=== PATIENT | male | born 1990 | race Caucasian/White ===

== ENCOUNTER 2021-12-20 04:38 | Inpatient (IN) | payer SELFPAY ==
[~2021-12-20] VITALS: Ht 180.3 cm; Wt 93.0 kg
[2021-12-20] VITALS (7 sets, daily range): BP systolic 107–143; BP diastolic 53–81
[2021-12-20] MEDS ORDERED: HYDR-2868 PO (05:24)
[2021-12-20] MEDS ORDERED: SERT100T PO (05:24)
[2021-12-20] MEDS ORDERED: MORPHINE SULFATE 2 MG/ML INJ. IVP PRN ×2 (05:30→07:15)
[2021-12-20] MEDS ORDERED: ONDANSETRON PF 4 MG/2 ML VIAL. IVP PRN (05:30)
[2021-12-20] MEDS ORDERED: IV NORMAL SALINE 1000ML BAG 1,000 ML IV ONE (05:30)
[2021-12-20] MEDS ORDERED: DEXAMETHASONE SOD PHOS 4 MG/ML VIAL ONE (07:02)
[2021-12-20] MEDS ORDERED: SUCCINYLCHOLINE 200 MG/10 ML VIAL. ONE (07:02)
[2021-12-20] MEDS ORDERED: ROCURONIUM 50 MG/5 ML VIAL. ONE (07:02)
[2021-12-20] MEDS ORDERED: ONDANSETRON PF 4 MG/2 ML VIAL. ONE (07:02)
[2021-12-20] MEDS ORDERED: LIDOCAINE 2% PF 5 ML VIAL. ONE (07:02)
[2021-12-20] MEDS ORDERED: PROPOFOL 10 MG/ML (20ML) VIAL. IV ONE (07:02)
[2021-12-20] MEDS ORDERED: BUPIVACAINE-EPI 0.25%-1:200000 MPF 30 ML VIAL. ONE (07:07)
[2021-12-20] MEDS ORDERED: HYDROmorphone 2 MG/ML INJ. IVP PRN (07:15)
[2021-12-20] MEDS ORDERED: fentaNYL PF VIAL 100 MCG/2 ML VIAL IVP PRN (07:15)
[2021-12-20] MEDS ORDERED: MIDAZOLAM HCL/PF 2 MG/2 ML VIAL. ONE (07:15)
[2021-12-20] MEDS ORDERED: PROCHLORPERAZINE 10 MG/2 ML VIAL. IVP PRN (07:15)
[2021-12-20] MEDS ORDERED: IV RINGERS,LACTATED 1000ML 1,000 ML IV SCH (07:15)
--- NOTE | 2021-12-20 07:26 | PDOC2 ---
CONSULT Date of Consult Date of Consult DATE: 12/20/21 TIME: 07:24 Reason for Consult Reason for Consult: Acute appendicitis Referring Physician Referring Physician: Hospitalist Identification/Chief Complaint Chief Complaint Abdominal pain Source Source: Chart review, Patient History of Present Illness Reason for Visit: 30-year-old male with 18-hour history of right lower quadrant abdominal pain came to emergency department further evaluation CT scan showing signs consistent with acute appendicitis elevated white count. Past Medical History Cardiovascular: No pertinent hx Pulmonary: No pertinent hx GI: No pertinent hx Heme/Onc: No pertinent hx Hepatobiliary: No pertinent hx Psych: No pertinent hx Rheumatologic: No pertinent hx Infectious disease: No pertinent hx ENT: No pertinent hx Renal/: No pertinent hx Endocrine: No pertinent hx Dermatology: No pertinent hx Past Surgical History Past Surgical History: No pertinent history Family History Family History: No Significant Social History No ALCOHOL: rare Drugs: None Lives: with Family Current Medications Current Medications Current Medications Sodium Chloride 1,000 ml @ 125 mls/hr 1X ONCE IV Last administered on 12/20/21at 05:28; Start 12/20/21 at 05:30; Stop 12/20/21 at 13:29 Morphine Sulfate (Morphine Sulfate) 2 mg PRN Q3HRS PRN IVP PAIN Last administered on 12/20/21at 05:29; Start 12/20/21 at 05:30 Ondansetron HCl (Zofran) 4 mg PRN Q4HRS PRN IVP NAUSEA/VOMITING; Start 12/20/21 at 05:30 Hydralazine HCl (Apresoline) 25 mg DAILY PO ; Start 12/20/21 at 09:00; Status UNV Sertraline HCl (Zoloft) 100 mg DAILY PO ; Start 12/20/21 at 09:00 Fentanyl Citrate (Fentanyl 2ml Vial) 25 mcg PRN Q5MIN PRN IVP MILD PAIN 1-3; Start 12/20/21 at 07:15; Stop 12/20/21 at 20:00 Fentanyl Citrate (Fentanyl 2ml Vial) 50 mcg PRN Q5MIN PRN IVP MODERATE PAIN 4- 6; Start 12/20/21 at 07:15; Stop 12/20/21 at 20:00 Morphine Sulfate (Morphine Sulfate) 1 mg PRN Q10MIN PRN IVP SEVERE PAIN 7-10; Start 12/20/21 at 07:15; Stop 12/20/21 at 20:00 Ringer's Solution 1,000 ml @ 30 mls/hr Q24H IV ; Start 12/20/21 at 07:15; Stop 12/20/21 at 19:14 Hydromorphone HCl (Dilaudid) 0.5 mg PRN Q10MIN PRN IVP SEVERE PAIN 7-10, 2nd CHOICE; Start 12/20/21 at 07:15; Stop 12/20/21 at 20:00 Prochlorperazine Edisylate (Compazine) 5 mg PACU PRN PRN IVP NAUSEA, MRX1; Start 12/20/21 at 07:15; Stop 12/20/21 at 20:00 Lidocaine HCl (Lidocaine Pf 2% Vial) 5 ml STK-MED ONCE .ROUTE ; Start 12/20/21 at 07:02; Stop 12/20/21 at 07:02; Status DC Propofol (Diprivan) 200 mg STK-MED ONCE IV ; Start 12/20/21 at 07:02; Stop 12/20/21 at 07:02; Status DC Ondansetron HCl (Zofran) 4 mg STK-MED ONCE .ROUTE ; Start 12/20/21 at 07:02; Stop 12/20/21 at 07:02; Status DC Dexamethasone Sodium Phosphate (Decadron) 4 mg STK-MED ONCE .ROUTE ; Start 12/20/21 at 07:02; Stop 12/20/21 at 07:02; Status DC Succinylcholine Chloride (Anectine) 200 mg STK-MED ONCE .ROUTE ; Start 12/20/21 at 07:02; Stop 12/20/21 at 07:02; Status DC Rocuronium [place] (Zemuron) 50 mg STK-MED ONCE .ROUTE ; Start 12/20/21 at 07:02; Stop 12/20/21 at 07:03; Status DC Bupivacaine HCl/ Epinephrine Bitart (Sensorcaine-Epi 0.25%-1:333267 Mpf) 30 ml STK-MED ONCE .ROUTE Last administered on 12/20/21at 07:13; Start 12/20/21 at 07:07; Stop 12/20/21 at 07:07; Status DC Midazolam HCl (Versed) 2 mg STK-MED ONCE .ROUTE ; Start 12/20/21 at 07:15; Stop 12/20/21 at 07:16; Status DC Active Scripts Active Reported Zoloft (Sertraline Hcl) 100 Mg Tablet 1 Tab PO DAILY Allergies Allergies: Coded Allergies: No Known Drug Allergies (Unverified , 12/20/21) ROS General: No: Chills, Night Sweats, Fatigue, Malaise, Appetite, Other PSYCHOLOGICAL ROS: No: Anxiety, Behavioral Disorder, Concentration difficultie, Decreased libido, Depression, Disorientation, Hallucinations, Hostility, Irritablity, Memory difficulties, Mood Swings, Obsessive thoughts, Physical abuse, Sexual abuse, Sleep disturbances, Suicidal ideation, Other Eyes: No Blurry vision, No Decreased vision, No Double vision, No Dry eyes, No Excessive tearing, No Eye Pain, No Itchy Eyes, No Loss of vision, No Photophobia, No Scotomata, No Uses contacts, No Uses glasses, No Other HEENT: No: Heacaches, Visual Changes, Hearing change, Nasal congestion, Nasal discharge, Oral lesions, Sinus pain, Sore Throat, Epistaxis, Sneezing, Snoring, Tinnitus, Vertigo, Vocal changes, Other ALLERGY AND IMMUNOLOGY: No: Hives, Insect Bite Sensitivity, Itchy/Watery Eyes, Nasal Congestion, Post Nasal Drip, Seasonal Allergies, Other Hematological and Lymphatic: No: Bleeding Problems, Blood Clots, Blood Transfusions, Brusing, Night Sweats, Pallor, Swollen Lymph Nodes, Other ENDOCRINE: No: Breast Changes, Galactorrhea, Hair Pattern Changes, Hot Flashes, Malaise/lethargy, Mood Swings, Palpitations, Polydipsia/polyuria, Skin Changes, Temperature Intolerance, Unexpected Weight Changes, Other Respiratory: No: Cough, Hemoptysis, Orthopnea, Pleuritic Pain, Shortness of breath, SOB with excertion, Sputum Changes, Stridor, Tachypnea, Wheezing, Other Cardiovascular: No Chest Pain, No Palpitations, No Orthopnea, No Paroxysmal Noc. Dyspnea, No Edema, No Lt Headedness, No Other Gastrointestinal: Yes Nausea, Yes Abdominal Pain Genitourinary: No Dysuria, No Frequency, No Incontinence, No Hematuria, No Retention, No Discharge, No Urgency, No Pain, No Flank Pain, No Other, No , No , No , No , No , No , No Musculoskeletal: No Gait Disturbance, No Joint Pain, No Joint Stiffness, No Joint Swelling, No Muscle Pain, No Muscular Weakness, No Pain In:, No Swelling In:, No Other Neurological: No Behavorial Changes, No Bowel/Bladder ControlChng, No Confusion, No Dizziness, No Gait Disturbance, No Headaches, No Impaired Coord/balance, No Memory Loss, No Numbness/Tingling, No Seizures, No Speech P roblems, No Tremors, No Visual Changes, No Weakness, No Other Skin: No Dry Skin, No Eczema, No Hair Changes, No Lumps, No Mole Changes, No Mottling, No Nail Changes, No Pruritus, No Rash, No Skin Lesion Changes, No Other, No Acne Physical Exam General: Alert, Oriented X3, Cooperative, mild distress HEENT: Atraumatic, PERRLA, EOMI Lungs: Clear to auscultation, Normal air movement Heart: Regular rate, No murmurs Abdomen: Normal bowel sounds, Soft, Other (Tender to palpation right lower quadrant no peritoneal signs) Extremities: No edema Skin: No significant lesion Neuro: Normal gait, Normal speech Psych/Mental Status: Mental status NL Vitals VITALS Vital Signs Date Time Temp Pulse Resp B/P (MAP) Pulse Ox O2 Delivery O2 Flow Rate FiO2 12/20/21 04:55 Room Air 12/20/21 04:50 98.2 61 16 143/81 (101) 98 98.2 Assessment/Plan Assessment/Plan Acute appendicitis plan laparoscopic appendectomy RUDY GIBSON MD Dec 20, 2021 07:26
[2021-12-20] MEDS ORDERED: PIPERACILLIN/TAZOBACTAM 3.375 GM in IV NORMAL SALINE 50ML 50 ML IV ONE (07:30)
[2021-12-20] MEDS ORDERED: KETOROLAC 30 MG/ML VIAL. ONE (07:35)
[2021-12-20] MEDS ORDERED: KETAMINE HCL IN NACL, ISO-OSM 50 MG/5 ML SYRINGE ONE (07:40)
[2021-12-20] MEDS ORDERED: NEOSTIGMINE METHYLSULFATE 5 MG/5 ML SYRINGE. ONE (08:00)
[2021-12-20] MEDS ORDERED: GLYCOPYRROLATE 1 MG/5 ML VIAL. ONE (08:00)
[2021-12-20] MEDS ORDERED: SEVOFLURANE 31 TO 60 MINUTES. IH ONE (08:09)
--- NOTE | 2021-12-20 08:17 | PDOC4 ---
Operative Note Operative Note Date: December 202021 at 8:14 AM Preoperative diagnosis: Acute appendicitis Postoperative diagnosis: The same Procedure: Laparoscopic appendectomy Surgeon: Cory Specimen: Appendix Children'S Book Author: None Dictation: Patient is a 30-year-old male has had 18-hour history of right lower quadrant abdominal pain a CT scan showing signs consistent with acute appendicitis. Procedure of laparoscopic appendectomy was explained to the patient detail was benefits were also discussed including bleeding infection injury to intra-abdominal contents possible necessitating further open operati ons alternatives to this procedure also discussed with the patient seemed to understand and gave a verbal written consent had procedure performed. Patient was taken to the operating room placed in the supine position general anesthesia was initiated once patient was sleeping intubated his abdomen was prepped and draped in usual sterile fashion using ChloraPrep. Area just below his umbilicus was injected with quarter percent Marcaine with epinephrine incision was made with a blade scalpel and a varies needle was placed within the abdomen creating pneumoperitoneum once this was complete the millimeter port was placed in a 5 mm camera was placed within the abdomen which was inspected was noted that the ear was for some free fluid in the right lower quadrant as well as an edematous inflamed appendix. 5 mm port was placed low in the midline and a 5 mm ports placed in the right midabdomen all under direct visualization. The appendix was grasped retracted towards anterior abdominal wall a window was propagated t hrough the mesoappendix at the base of the appendix with a [place] dissector. Endo VANCE stapler was used to staple and transect the base of the appendix a second load was used to staple and transect the mesoappendix. The appendix placed in Endo Catch bag and removed from the umbilicus there was some bleeding along the staple line this was controlled with pressure and a Ray-Sujit sponge the right lower quadrant was irrigated and suctioned dry as well as the pelvis. The Ray-Sujit sponge was then removed from the abdomen hemostasis deemed to be appropriate the pneumoperitoneum was reduced all ports were removed the fascial defect at the umbilicus was closed with a [id number] 0 Vicryl suture and the skin was reapproximated all port sites for subcuticular Monocryl Mastisol Steri-Strips and island dressings were applied. Patient was awakened extubated in the operating room taken to recovery in stable condition all sponge instrument needle counts listed as correct estimated blood loss 20 mL RUDY GIBSON MD Dec 20, 2021 08:17
--- NOTE | 2021-12-20 08:22 | DISCH ---
DISCHARGE INSTRUCTIONS Condition on Discharge Condition on Discharge: Stable Activity After Discharge Activity Instructions for Disc: No restrictions Other activity instructions: No lifting more than 20 pounds for 2-week Diet after Discharge Diet after Discharge: Regular Wound Incision Care Wound/Incision Care: Ice to area for comfort Contacting the after DC Call your doctor for: If your condition worsens Follow-Up Follow up with: Follow-up Dr. Gibson in 2-week RUDY GIBSON MD Dec 20, 2021 08:22
[2021-12-20] MEDS ORDERED: oxyCODONE/APAP 5/325 1 TAB TABLET PO PRN (08:30)
[2021-12-20] MEDS ORDERED: hydrALAZINE 25 MG TABLET PO SCH (09:00)
[2021-12-20] MEDS ORDERED: SERTRALINE 50 MG TABLET. PO SCH (09:00)
[2021-12-20] MEDS ORDERED: fentaNYL PF VIAL 100 MCG/2 ML VIAL ONE (09:01)
[2021-12-20] MEDS: fentaNYL PF VIAL 100 MCG/2 ML VIAL IVP PRN ×2 (09:03→09:12)
--- NOTE | 2021-12-20 09:40 | NUR ---
Nurse's note: Patient underwent laparoscopic appendectomy this morning; came back to the unit at 0935, VSS BP 116/64 HR 71 RR 18 Temp 98.2 F O2 sat 96% room air and no complaints of pain. Surgical island dressings clean, dry, and intact. Patient's diet changed to clears per surgeons's order to advance his diet. This nurse brought gelatin, water, and broth but patient stated that he wants to have regular food since he hasn't been eating for two days. Discussed with the patient that it's not recommended, since we have to observe how he tolerates his diet especially post operatively. The patient insisted, told this nurse that he is starving and wouldn't take the clears. Consequences explained to him that he may have abdominal pain, N/V; he replied " I'm not like that." Pt is aware of possible complications.
--- NOTE | 2021-12-20 10:46 | PDOC1 ---
History and Physical Date of Admission Date of Admission DATE: 12/20/21 TIME: 10:41 Identification/Chief Complaint Chief Complaint Abdominal pain Source Source: Chart review, Patient History of Present Illness History of Present Illness 30-year-old male presents as a transfer from [facility] with generalized abdominal pain for 2 days. He describes the pain as sharp, cramping, pressure. He said several episodes of vomiting. He denies any diarrhea or fever. Labs at [facility] showed WBC 17.5, with other lab work largely unremarkable. CT abdomen/pelvis showed acute uncompensated appendicitis. He was transferred to [facility] for further medical management. Past Medical History Cardiovascular: No pertinent hx Pulmonary: No pertinent hx GI: No pertinent hx Heme/Onc: No pertinent hx Hepatobiliary: No pertinent hx Psych: No pertinent hx Rheumatologic: No pertinent hx Infectious disease: No pertinent hx ENT: No pertinent hx Renal/: No pertinent hx Endocrine: No pertinent hx Dermatology: No pertinent hx Past Surgical History Past Surgical History: No pertinent history Family History Family History: No Significant Social History Smoke: No ALCOHOL: rare Drugs: None Current Medications Current Medications Current Medications Sodium Chloride 1,000 ml @ 125 mls/hr 1X ONCE IV Last administered on 12/20/21at 05:28; Start 12/20/21 at 05:30; Stop 12/20/21 at 13:29 Morphine Sulfate (Morphine Sulfate) 2 mg PRN Q3HRS PRN IVP PAIN Last administered on 12/20/21at 05:29; Start 12/20/21 at 05:30 Ondansetron HCl (Zofran) 4 mg PRN Q4HRS PRN IVP NAUSEA/VOMITING; Start 12/20/21 at 05:30 Hydralazine HCl (Apresoline) 25 mg DAILY PO ; Start 12/20/21 at 09:00; Status U NV Sertraline HCl (Zoloft) 100 mg DAILY PO ; Start 12/20/21 at 09:00 Fentanyl Citrate (Fentanyl 2ml Vial) 25 mcg PRN Q5MIN PRN IVP MILD PAIN 1-3; Start 12/20/21 at 07:15; Stop 12/20/21 at 20:00 Fentanyl Citrate (Fentanyl 2ml Vial) 50 mcg PRN Q5MIN PRN IVP MODERATE PAIN 4-6 Last administered on 12/20/21at 09:12; Start 12/20/21 at 07:15; Stop 12/20/21 at 20:00 Morphine Sulfate (Morphine Sulfate) 1 mg PRN Q10MIN PRN IVP SEVERE PAIN 7-10; Start 12/20/21 at 07:15; Stop 12/20/21 at 20:00 Ringer's Solution 1,000 ml @ 30 mls/hr Q24H IV ; Start 12/20/21 at 07:15; Stop 12/20/21 at 19:14 Hydromorphone HCl (Dilaudid) 0.5 mg PRN Q10MIN PRN IVP SEVERE PAIN 7-10, 2nd CHOICE; Start 12/20/21 at 07:15; Stop 12/20/21 at 20:00 Prochlorperazine Edisylate (Compazine) 5 mg PACU PRN PRN IVP NAUSEA, MRX1; Start 12/20/21 at 07:15; Stop 12/20/21 at 20:00 Lidocaine HCl (Lidocaine Pf 2% Vial) 5 ml STK-MED ONCE .ROUTE ; Start 12/20/21 at 07:02; Stop 12/20/21 at 07:02; Status DC Propofol (Diprivan) 200 mg STK-MED ONCE IV ; Start 12/20/21 at 07:02; Stop 12/20/21 at 07:02; Status DC Ondansetron HCl (Zofran) 4 mg STK-MED ONCE .ROUTE ; Start 12/20/21 at 07:02; Stop 12/20/21 at 07:02; Status DC Dexamethasone Sodium Phosphate (Decadron) 4 mg STK-MED ONCE .ROUTE ; Start 12/20/21 at 07:02; Stop 12/20/21 at 07:02; Status DC Succinylcholine Chloride (Anectine) 200 mg STK-MED ONCE .ROUTE ; Start 12/20/21 at 07:02; Stop 12/20/21 at 07:02; Status DC Rocuronium [place] (Zemuron) 50 mg STK-MED ONCE .ROUTE ; Start 12/20/21 at 07:02; Stop 12/20/21 at 07:03; Status DC Bupivacaine HCl/ Epinephrine Bitart (Sensorcaine-Epi 0.25%-1:088651 Mpf) 30 ml STK-MED ONCE .ROUTE Last administered on 12/20/21at 07:58; Start 12/20/21 at 07:07; Stop 12/20/21 at 07:07; Status DC Midazolam HCl (Versed) 2 mg STK-MED ONCE .ROUTE ; Start 12/20/21 at 07:15; Stop 12/20/21 at 07:16; Status DC Piperacillin Sod/ Tazobactam Sod 3.375 gm/Sodium Chloride 50 ml @ 100 mls/hr 1X ONCE IV Last administered on 12/20/21at 07:30; Start 12/20/21 at 07:30; Stop 12/20/21 at 08:00; Status DC Ketorolac Tromethamine (Toradol 30mg Vial) 30 mg STK-MED ONCE .ROUTE ; Start 12/20/21 at 07:35; Stop 12/20/21 at 07:35; Status DC Ketamine HCl (Ketamine) 50 mg STK-MED ONCE .ROUTE ; Start 12/20/21 at 07:40; Stop 12/20/21 at 07:40; Status DC Neostigmine [place] (Neostigmine Methylsulfate) 5 mg STK-MED ONCE .ROUTE ; Start 12/20/21 at 08:00; Stop 12/20/21 at 08:00; Status DC Glycopyrrolate (Robinul) 1 mg STK-MED ONCE .ROUTE ; Start 12/20/21 at 08:00; Stop 12/20/21 at 08:01; Status DC Sevoflurane (Ultane) 30 ml STK-MED ONCE IH ; Start 12/20/21 at 08:09; Stop 12/20/21 at 08:10; Status DC Piperacillin Sod/ Tazobactam Sod 3.375 gm/Sodium Chloride 50 ml @ 100 mls/hr Q6HRS IV ; Start 12/20/21 at 12:00 Oxycodone/ Acetaminophen (Percocet 5/325) 1 tab PRN Q4HRS PRN PO MODERATE TO SEVERE PAIN; Start 12/20/21 at 08:30 Ketorolac Tromethamine (Toradol 15mg Vial) 15 mg Q6HRS IVP ; Start 12/20/21 at 12:00; Stop 12/21/21 at 11:59 Fentanyl Citrate (Fentanyl 2ml Vial) 100 mcg STK-MED ONCE .ROUTE ; Start 12/20/21 at 09:01; Stop 12/20/21 at 09:02; Status DC Active Scripts Active Reported Zoloft (Sertraline Hcl) 100 Mg Tablet 1 Tab PO DAILY Allergies Allergies: Coded Allergies: No Known Drug Allergies (Unverified , 12/20/21) ROS Review of System GENERAL: No history of weight change, weakness or fevers. SKIN: No bruising, hair changes or rashes. EYES: No blurred, double or loss of vision. NOSE AND THROAT: No history of nosebleeds, hoarseness or sore throat. HEART: Denies chest pain, denies palpitations. LUNGS: Denies cough, hemoptysis, wheezing or shortness of breath. GASTROINTESTINAL: Abdominal pain, nausea, vomiting. GENITOURINARY: Denies dysuria, frequency, urgency, hematuria. NEUROLOGIC: Denies history of numbness, tingling, tremor or weakness. PSYCHIATRIC: Denies anxiety, denies depression. ENDOCRINE: No history of heat or cold intolerance, polyuria or polydipsia. EXTREMITIES: Denies muscle weakness, joint pain, pain on walking or stiffness. Physical Exam Physical Exam General: Alert, Oriented X3, Cooperative, No acute distress HEENT: PERRLA, EOMI Lungs: Clear to auscultation, Normal air movement Heart: RRR, no murmurs Cardiovascular: S1, S2 Abdomen: Postsurgical incisions with no surrounding erythema. Normal bowel sounds, Soft. Mild tenderness. Extremities: No clubbing, No cyanosis Skin: No rashes, No significant lesion Neuro: Normal speech, Normal tone, Sensation intact Psych/Mental Status: Mental status NL, Mood NL Vitals Vitals Vital Signs Date Time Temp Pulse Resp B/P (MAP) Pulse Ox O2 Delivery O2 Flow Rate FiO2 12/20/21 09:12 18 94 Room Air 12/20/21 09:10 98.2 76 122/67 98.2 12/20/21 08:25 8.0 Images Images PATIENT: NAYELY BURKETT ACCOUNT: [id number] : 1990 LOCATION: ER AGE: 30 SEX: M EXAM STATUS: REG ER ORD. PHYSICIAN: SELENA PERAZA DO REASON: OMNI 300,75ML IV.Abdominal pain.NO INJURY OR SX PROCEDURE: CT ABD PELV W/ IV CONTRST ONLY EXAMINATION: CT ABDOMEN+PELVIS W CLINICAL HISTORY: Abdominal pain. TECHNIQUE: CT of the abdomen and pelvis was performed using standard technique, scanning from just above the dome of the diaphragm to the symphysis pubis following administration of intravenous contrast. CT Dose Reduction Employed: One or more of the following individualized dose reduction techniques were utilized for this examination: 1. Automated exposure control 2. Adjustment of the mA and/or kV according to patient size 3. Use of iterative reconstruction technique. COMPARISON: None FINDINGS: Visualized heart and lungs unremarkable. Minimal ill-defined hepatic hypoattenuation along the anterior falciform ligament, likely focal steatosis. Punctate calcifications in the spleen, likely related to old granulomatous disease. Gallbladder, pancreas, adrenal glands, and kidneys unremarkable. Minimally filled urinary bladder. Dilated appendix measuring up to 11 mm in diameter with thickened valles and mild periappendiceal edema. No evidence of appendiceal perforation or periappendiceal abscess. No bowel dilation or wall thickening. No abdominal aortic or iliac artery aneurysm. No evidence of acute osseous abnormality. IMPRESSION: Acute uncomplicated appendicitis. VTE Prophylaxis Ordered VTE Prophylaxis Devices: No VTE Pharmacological Prophylaxi: Yes Assessment/Plan Assessment/Plan Acute appendicitis Plan: Consult to general surgery Patient was taken to the OR earlier this morning for laparoscopic appendectomy. Tolerated Gibler diet Discharge home today with family care FEN - regular diet PPX - Heparin FULL CODE Dispo - inpatient for above Justifications for Admission Other Justification TOD ALVARADO MD Dec 20, 2021 10:46
--- NOTE | 2021-12-20 11:32 | PDOC3 ---
Discharge Summary Visit Information Date of Admission: Dec 20, 2021 Date of Discharge: Dec 20, 2021 Brief Hospital Course Allergies Allergies Coded Allergies Type Severity Reaction Last Updated Verified No Known Drug Allergies 12/20/21 No Vital Signs Vital Signs Date Time Temp Pulse Resp B/P (MAP) Pulse Ox O2 Delivery O2 Flow Rate FiO2 12/20/21 11:00 98.0 68 18 115/62 (79) 96 Room Air 98.0 12/20/21 08:25 8.0 Brief Hospital Course Mr. Nieves is a 30 old male who presented with acute appendicitis. Consultation placed to general surgery. He had laparoscopic appendectomy. After surgery patient had no complaints, eager to discharge home for a family . Discharge home with family care and close PCP follow-up. Discharge Information Condition at Discharge: Improved Disposition/Orders: D/C to Home Scheduled Sertraline Hcl (Zoloft) 100 Mg Tablet, 1 TAB PO DAILY for mood, #30 Ref 5 (Reported) Entered as Reported by: GONZALO GLASGOW on 12/20/21523 Last Taken: Unknown Dose on 12/19/21 Last Action: Converted on 12/20/21523 by GONZALO GLASGOW Discontinued Medications Hydralazine Hcl (Hydralazine Hcl) 25 Mg Tablet, 1 TAB PO DAILY for blood pressure , #90 Ref 5 (Reported) Entered as Reported by: GONZALO GLASGOW on 12/20/21523 Last Taken: Unknown Dose on 12/19/21 Last Action: Discontinued on 12/20/21547 by GONZALO GLASGOW Justicifation of Admission Dx: Justifications for Admission: Justification of Admission Dx: Yes TOD ALVRAADO MD Dec 20, 2021 11:32
[2021-12-20] MEDS ORDERED: OXYC1TAB15 PO (11:33)
[2021-12-20] MEDS ORDERED: HYDR-3070 PO (11:40)
[2021-12-20] MEDS ORDERED: KETOROLAC 15 MG/ML VIAL. IVP SCH (12:00)
[2021-12-20] MEDS ORDERED: PIPERACILLIN/TAZOBACTAM 3.375 GM in IV NORMAL SALINE 50ML 50 ML IV SCH (12:00)
--- NOTE | 2021-12-20 13:22 | NUR ---
Discharge Note: NAYELY BURKETT Discharge instructions and discharge home medications reviewed with the patient and a copy given. All questions have been answered and understanding verbalized. The following instructions and handouts were given: Percocet prn for pain; patient was given goodrx coupon Continue home meds Discussed surgical wound care, signs and symptoms to watch out for and precautions FF up with surgery in 2 weeks, call if with issues Discussed the handout on lap appendectomy Discontinued lines and drains: IV intact, no complications Patient discharged to home with self-care ambulatory accompanied by a family member at 1305.
--- NOTE | 2021-12-23 18:06 | PATHOLOGY ---
[facility] Accession Number: [id number] . 01 Material submitted: . appendix - APPENDIX . 01 Clinical history: . APPENDICITIS . 02 Diagnosis: Appendix, laparoscopic appendectomy: - Acute suppurative appendicitis. . ([facility]:mmskylar; 12/23/2021) [facility] 12/23/2021 1618 Local . 02 Comment: There is no evidence of rupture. . ([facility]:sheron; 12/23/2021) . 02 Electronically signed: . Dimitri White MD, Pathologist NPI- [id number] . 01 Gross description: . Fixative: Formalin Labeled: Appendix Appendix length: 9.2 cm Appendix diameter: Up to 1.4 cm Mesoappendix: 8.0 x 2.3 x 1.5 cm Proximal margin: Closed with a staple line Serosa: Rivera-red and displays extensive rivera-white purulent exudate Cut surface: Displays a dilated lumen filled with fecal material Luminal diameter: Up to 0.8 cm Perforation: No Lesions/abnormalities: Previously described A1 Proximal margin (inked black) and distal tip, bisected A2 Mid [place] [place] [facility] 12/22/2021 1156 Local . 02 Pathologist provided ICD-10: K35.80 . 02 CPT . 431831 Specimen Comment: A courtesy copy of this report has been sent to [phone], [phone] Specimen Comment: [id number] Specimen Comment: Report sent to / DR CADENA Specimen Comment: A duplicate report has been generated due to demographic updates. Performed at: [address], [place], [place] [id number] MD Sohail Williamson MD Phone: [phone] Performed at: 02 [facility] [address] [place], [place] [id number] MD Dimitri White MD Phone: [phone]
== END 2021-12-20 13:05 | disposition home or self-care (01) | DRG 343 ==
LOC: 2 NORTH 04:38
PROVIDERS: ADMIT Internal Medicine; ATTEND Internal Medicine
PROC: 0DTJ4ZZ Resection of Appendix, Percutaneous Endoscopic Approach (ICD-10-PCS; principal; 2021-12-20 07:30)
DX: K35.80 Unspecified acute appendicitis (principal); Z79.899 Other long term (current) drug therapy
CPT/HCPCS: 88305; A4314; A4930; G0379; J0330; J1100; J1885; J2250; J2270; J2405; J2543; J2704; J2710; J3010; J3490; J7030